=== PATIENT | female | born 1985 | race African-American/Black ===

== ENCOUNTER 2019-04-24 20:19 | Emergency (ER) | payer MEDICAID ==
[2019-04-24] MEDS ORDERED: Meclizine HCl 25 MG TAB ONE (20:41)
== END 2019-04-24 21:01 | disposition home or self-care (01) ==
LOC: ERS 20:19
DX: R42 Dizziness and giddiness (principal); F32.9 Major depressive disorder, single episode, unspecified
CPT/HCPCS: 99283; J8597

== ENCOUNTER 2022-07-11 07:12 | Emergency (ER) | payer OTHER, BC ==
[2022-07-11] MEDS ORDERED: Acetaminophen 500 MG TAB ONE (07:26)
== END 2022-07-11 09:00 | disposition home or self-care (01) ==
LOC: ERS 07:12
DX: M62.830 Muscle spasm of back (principal); V89.2XXA Person injured in unspecified motor-vehicle accident, traffic, initial encounter
CPT/HCPCS: 71045; 93005